=== PATIENT | female | born 1960 | race Caucasian/White ===

== ENCOUNTER 2016-12-26 06:13 | Day surgery (SDC) | payer OTHER ==
[2016-12-20 12:40] VITALS: BMI 21.1
[~2016-12-26 06:13] MED LIST: LEVOFLOXACIN 500 MG PREMIX BAG IVPB ONE
[2016-12-26] MEDS ORDERED: LEVOFLOXACIN 500 MG PREMIX BAG IVPB ONE (13:13)
[2016-12-26] MEDS ORDERED: PROMETHAZINE HCL 25 MG/1 ML VIAL IVPUSH PRN (13:44)
[2016-12-26] MEDS ORDERED: ONDANSETRON 4 MG/2 ML VIAL IVPUSH PRN (13:44)
[2016-12-26] MEDS ORDERED: oxyCODONE HCL 5 MG TABLET PO PRN (13:44)
[2016-12-26] MEDS ORDERED: LACTATED RINGERS SOLUTION 1,000 ML IV SCH (13:45)
--- NOTE | 2016-12-26 13:50 | OP ---
Operative Note - Note: Operative Date: 12/26/16 Pre-Operative Diagnosis: left renal stone Operation: left eswl Findings: 13 mm left mid pole renal stone Post-Operative Diagnosis: Same as Pre-op Surgeon: Kirit White Anesthesia: General Operative Report Dictated: Yes
[2016-12-26 13:59] VITALS: TEMP 98.1
[2016-12-26 15:55] VITALS: BP 119/77; PULSE 70
--- NOTE | 2016-12-26 20:53 | OP ---
DATE OF OPERATION: 12/26/2016 PREOPERATIVE DIAGNOSIS: Left renal stone. POSTOPERATIVE DIAGNOSIS: Left renal stone. PROCEDURE: Left extracorporeal shock wave lithotripsy. ATTENDING: Pedrito White M.D. ANESTHESIA: General. OPERATION: Patient was brought in the operating room, placed in a supine position on the operating room table. Ultrasonography and fluoroscopy were performed. A 13-mm left mid pole stone was identified. General anesthesia was then administered. Levaquin 500 mg was given intravenously for surgical prophylaxis. At this point, extracorporeal shock wave lithotripsy was performed with 3000 impulses at 20 joules of power was administered to the stone with excellent fragmentation noted under real time fluoroscopy and ultrasonography. There were no complications noted. DISPOSITION: Disposition of the patient to the recovery room. PEDRITO ACOSTA M.D. [id number]
== END 2016-12-26 16:31 | disposition home or self-care (01) ==
LOC: JASU-SURG 06:13
PROVIDERS: ATTEND Urology
PROC: 0TF4XZZ Fragmentation in Left Kidney Pelvis, External Approach (ICD-10-PCS; principal; 2016-12-26 14:15)
DX: N20.0 Calculus of kidney (principal)
CPT/HCPCS: 94760

== ENCOUNTER 2017-04-16 23:45 | Emergency (ER) | payer OTHER ==
[2017-04-17 00:17] VITALS: BP 132/96; PULSE 103; TEMP 97.7; BMI 21.4
--- NOTE | 2017-04-17 01:19 | PDOC ---
History of Present Illness - History of Present Illness Initial Comments: 04/17/17 02:14 The patient is a 56 year old female, with a significant past medical history of Sjogren syndrome, recurrent nephrolithiasis status post multiple lithotripsies ( last 3 months ago), fibromyalgia, chronic IBS, depression/anxiety, GERD, and COPD, who presents to the emergency department with right flank pain today. The patient states she had lithotripsy of a 10mm stone on the left 3 months ago. She reports knowing of a stone on the right. She reports her right flank pain increased significantly tonight. She denies any other symptoms. She denies chest pain, shortness of breath, headache and dizziness. She denies fever, chills, nausea, vomit, diarrhea and constipation. She denies dysuria, frequency, urgency and hematuria. Allergies: NKDA <Perri Dennison - Last Filed: 04/17/17 04:41> <Evelina Belcher - Last Filed: 04/17/17 06:30> - General Chief Complaint: Pain, Acute Stated Complaint: RIGHT SIDE PAIN Time Seen by Provider: 04/17/17 01:19 Past History <Perri Dennison - Last Filed: 04/17/17 04:41> - Past Medical History Anemia: No Asthma: No Cancer: No Cardiac Disorders: No CVA: No COPD: No CHF: No Dementia: No Diabetes: No GI Disorders: Yes (IBS) Disorders: Yes (KIDNEY STONES) HTN: No Hypercholesterolemia: No Kidney Stones: Yes Liver Disease: No (GERD) Psychiatric Problems: Yes (depression) Suicide Attempt (Hx): No Seizures: No Thyroid Disease: No Other medical history: fibromialgia, rheumatoid arthritis - Surgical History Abdominal Surgery: No Appendectomy: No Cardiac Surgery: No Cholecystectomy: No Lung Surgery: No Neurologic Surgery: No Orthopedic Surgery: Yes (SHOULDER SX-ROTATOR CUFF (LEFT)) - Reproductive History Cervical CA: No Dysfunctional Uterine Bleeding: No Ectopic : No Endometrial CA: No Polycystic Ovaries: No - Immunization History Immunization Up to Date: Yes (flu) - Psycho/Social/Smoking Cessation Hx Anxiety: No Suicidal Ideation: No Smoking Status: Yes Smoking History: Current every day smoker Years of Tobacco Use: 30 Have you smoked in the past 12 months: Yes Number of Cigarettes Smoked Daily: 10 Information on smoking cessation initiated: No 'Breaking Loose' booklet given: 03/17/16 Hx Alcohol Use: No Drug/Substance Use Hx: No Substance Use Type: Marijuana Hx Substance Use Treatment: No <Evelina Belcher - Last Filed: 04/17/17 06:30> - Past Medical History Allergies/Adverse Reactions: Allergies Allergy/AdvReac Type Severity Reaction Status Date / Time No Known Drug Allergies Allergy Verified 04/17/17 00:07 Home Medications: Ambulatory Orders Mirtazapine [Remeron -] 45 mg PO HS 06/12/15 Hydrochlorothiazide [Hctz -] 12.5 mg PO DAILY 08/31/15 Tiotropium [place] [Spiriva] 1 inh PO DAILY 08/31/15 Zolpidem Tartrate [Ambien] 10 mg PO HS PRN 08/31/15 Sennosides [Senokot] 8.6 mg PO HS 09/20/15 Alprazolam [Xanax] 2 mg PO HS PRN 12/20/16 Duloxetine HCl [Cymbalta] 30 mg PO BID 12/20/16 Gabapentin 800 mg PO DAILY 12/20/16 Hydrocodone/Acetaminophen [Lortab 10-325 mg Tablet] 1 each PO PRN PRN 12/20/16 L.acidoph,Paracasei, B.lactis [Probiotic] 1 each PO BID 12/20/16 Methylcellulose [Citrucel] 4 tab PO DAILY 12/20/16 Review of Systems - Review of Systems Able to Perform ROS?: Yes Comments:: 04/17/17 02:15 GENERAL/CONSTITUTIONAL: No fever or chills. No weakness. HEAD, EYES, EARS, NOSE AND THROAT: No change in vision. No ear pain or discharge. No sore throat. CARDIOVASCULAR: No chest pain or shortness of breath. RESPIRATORY: No cough, wheezing, or hemoptysis. GASTROINTESTINAL: No nausea, vomiting, diarrhea or constipation. GENITOURINARY: (+) right flank pain. No dysuria, frequency, or change in urination. MUSCULOSKELETAL: No joint or muscle swelling or pain. No neck or back pain. SKIN: No rash NEUROLOGIC: No headache, vertigo, loss of consciousness, or change in strength/ sensation. ENDOCRINE: No increased thirst. No abnormal weight change. HEMATOLOGIC/LYMPHATIC: No anemia, easy bleeding, or history of blood clots. ALLERGIC/IMMUNOLOGIC: No hives or skin allergy. <Vero Dennisonanda - Last Filed: 04/17/17 04:41> *Physical Exam - Vital Signs Last Vital Signs Temp Pulse Resp BP Pulse Ox 97.7 F 103 H 20 132/96 96 04/17/17 00:04 04/17/17 00:04 04/17/17 00:04 04/17/17 00:04 04/17/17 00:04 - Physical Exam Comments: 04/17/17 02:17 GENERAL: Awake, alert, and fully oriented, in no acute distress HEAD: No signs of trauma EYES: PERRLA, EOMI, sclera anicteric, conjunctiva clear ENT: Auricles normal inspection, hearing grossly normal, nares patent, oropharynx clear without exudates. Moist mucosa NECK: Normal ROM, supple, no lymphadenopathy, JVD, or masses LUNGS: Breath sounds equal, clear to auscultation bilaterally. No wheezes, and no crackles HEART: Regular rate and rhythm, normal S1 and S2, no murmurs, rubs or gallops ABDOMEN: Soft, nontender, normoactive bowel sounds. No guarding, no rebound. No masses EXTREMITIES: Normal range of motion, no edema. No clubbing or cyanosis. No cords, erythema, or tenderness NEUROLOGICAL: Cranial nerves II through XII grossly intact. Normal speech, normal gait SKIN: Warm, Dry, normal turgor, no rashes or lesions noted. <KalpanaPerri hendrix - Last Filed: 04/17/17 04:41> - Vital Signs Last Vital Signs Temp Pulse Resp BP Pulse Ox 97.7 F 103 H 20 132/96 96 04/17/17 00:04 04/17/17 00:04 04/17/17 00:04 04/17/17 00:04 04/17/17 00:04 <Evelina Belcher - Last Filed: 04/17/17 06:30> ED Treatment Course - LABORATORY CBC & Chemistry Diagram: 04/17/17 02:00 04/17/17 02:00 - RADIOLOGY Radiograph Interpretation: 04/17/17 04:41 EXAM: CT ABDOMEN AND PELVIS WITHOUT CONTRAST was read by Soledad Berry M.D. 03:37 EST IMPRESSION: Small stone left kidney, similar to 07/18/16. No ureterolithiasis or obstructive uropathy. No bladder calculi. Unremarkable pancreas and gallbladder. No bowel obstruction, colitis, diverticulitis, free fluid or free air. Normal appendix. Small right Bochdalek hernia containing fat. <Perri Dennison - Last Filed: 04/17/17 04:41> - LABORATORY CBC & Chemistry Diagram: 04/17/17 02:00 04/17/17 02:00 <Evelina Belcher - Last Filed: 04/17/17 06:30> Medical Decision Making - Medical Decision Making 04/17/17 02:43 Pt comes with R flank pain. She states that she has a long hx of kidney stones , and that they get broken up by her urologist Abner usually. Today she comes with right sided flank pain and right abd pain. Pt's UA is normal and her CBC is normal. She will be hydrated and given morphine and she will get a spiral CT scan, as the last CT scan on record was a year ago. 04/17/17 03:52 Patient Name: Phani Chirinos THIS IS A PRELIMINARY REPORT FROM [facility] TECHNICIAN IMAGES: [id number] EXAM DATE AND TIME: 2017-04-17 02:44:22.0 EXAM: CT ABDOMEN AND PELVIS WITHOUT CONTRAST Small stone left kidney, similar to 07/18/16. No ureterolithiasis or obstructive uropathy. No bladder calculi. Unremarkable pancreas and gallbladder. No bowel obstruction, colitis, diverticulitis, free fluid or free air. Normal appendix. Small right Bochdalek hernia containing fat. THIS DOCUMENT HAS BEEN ELECTRONICALLY SIGNED 04/17/17 06:29 Pt was upset when she heard that her labs and CT are essentially normal. She is arguing with me because she wants to stay in the ER and get more narcotics. I told her to go home and follow outpatient. <Evelina Belcher - Last Filed: 04/17/17 06:30> *DC/Admit/Observation/Transfer - Attestations Scribe Attestion: 04/17/17 02:18 Documentation prepared by Perri Dennison, acting as medical office worker for Evelina Belcher MD <Perri Dennison - Last Filed: 04/17/17 04:41> - Discharge Dispostion Admit: No <Evelina Belcher - Last Filed: 04/17/17 06:30> Diagnosis at time of Disposition: Flank pain - Discharge Dispostion Disposition: HOME Condition at time of disposition: Stable - Referrals Referrals: Abdon Rogers MD [Primary Care Provider] - - Patient Instructions Printed Discharge Instructions: Kidney Stones -- Adult
[2017-04-17] MEDS ORDERED: morphine CARPU-JECT 2 MG/1 ML DISP.SYRIN IVPUSH ONE (01:51)
[2017-04-17] MEDS ORDERED: SODIUM CHLORIDE 0.9% 500 ML INFUS.BAG IV ONE (01:51)
[2017-04-17 02:11] LABS: BASOPHIL 1.1 % (0-2.0); MCHC 32.8 g/dl (32.0-36.0); MEAN CELL VOLUME 94.6 fl (80-96); MEAN PLT VOLUME 7.9 fl (7.5-11.1); NEUTROPHILS 59.6 % (42.8-82.8); PLATELET COUNT 225 K/MM3 (134-434); RDW 14.5 % (11.6-15.6); WHITE BLOOD COUNT 9.4 K/mm3 (4.0-10.0)
[2017-04-17] MEDS ORDERED: morphine CARPU-JECT 2 MG/1 ML DISP.SYRIN ONE (02:21)
[2017-04-17 02:46] LABS: ALBUMIN 3.5 g/dl (3.4-5.0); ALK PHOS 100 U/L (45-117); ANION GAP 6 (8-16); BILIRUBIN,TOTAL 0.2 mg/dL (0.2-1.0); CALCIUM 8.7 mg/dL (8.5-10.1); CO2 26 mmol/L (21-32); CREATININE 0.9 mg/dL (0.55-1.02); GLUCOSE,RANDOM 107 mg/dL (74-106); SGOT/AST 30 U/L (15-37); SGPT/ALT 28 U/L (12-78); TOT PROT 6.8 g/dl (6.4-8.2)
== END 2017-04-17 04:06 | disposition home or self-care (01) ==
LOC: JER 23:45
PROC: 3E033NZ Introduction of Analgesics, Hypnotics, Sedatives into Peripheral Vein, Percutaneous Approach (ICD-10-PCS; principal; 2017-04-16)
DX: R10.31 Right lower quadrant pain (principal); Z87.442 Personal history of urinary calculi; K21.9 Gastro-esophageal reflux disease without esophagitis; J44.9 Chronic obstructive pulmonary disease, unspecified; F41.8 Other specified anxiety disorders
CPT/HCPCS: 36415; 74176; 80053; 85025; 96374; 99282-25

== ENCOUNTER 2019-06-25 08:18 | Day surgery (SDC) | payer OTHER ==
[2019-06-24 14:08] VITALS: BMI 20.5
[2019-06-25] MEDS ORDERED: ceFAZolin SODIUM 1 GM VIAL ONE (10:23)
[2019-06-25] MEDS ORDERED: LIDOCAINE HCL/PF 2% SDV 5ML VIAL ONE (10:23)
[2019-06-25] MEDS ORDERED: PROPOFOL 20 ML ONE (10:24)
[2019-06-25] MEDS ORDERED: MIDAZOLAM HCL 2 MG/2 ML SINGLE DOSE VIAL ONE (10:24)
[2019-06-25] MEDS ORDERED: KETOROLAC TROMETHAMINE 30 MG/1 ML VIAL ONE (10:41)
--- NOTE | 2019-06-25 11:00 | OP ---
Operative Note - Note: Operative Date: 06/25/19 Pre-Operative Diagnosis: Left renal calculus Operation: Left ESWL Findings: Left 5 mm stone Post-Operative Diagnosis: Same as Pre-op Surgeon: Tyler Gonsales MD. Anesthesia: General
[2019-06-25] MEDS ORDERED: ONDANSETRON 4 MG/2 ML VIAL IVPUSH PRN (11:08)
[2019-06-25] MEDS ORDERED: ACETAMINOPHEN 1000 MG/100 ML VIAL (NON FORMULARY) IVPB PRN (11:08)
[2019-06-25] MEDS ORDERED: oxyCODONE HCL 5 MG TABLET PO PRN (11:08)
[2019-06-25] MEDS ORDERED: LACTATED RINGERS SOLUTION 1,000 ML IV SCH (11:15)
[2019-06-25] MEDS ORDERED: oxyCODONE HCL 5 MG TABLET ONE (12:27)
--- NOTE | 2019-06-25 12:59 | OP ---
DATE OF OPERATION: 06/25/2019 PREOPERATIVE DIAGNOSIS: Left renal calculus. POSTOPERATIVE DIAGNOSIS: Left renal calculus. PROCEDURE: Left extracorporeal shock-wave lithotripsy. HISTORY: This is a 58-year-old female with a history of left renal colic and left renal calculi. Preoperative imaging revealed a 5-mm middle pole stone. I have explained to the patient that likely this is not the cause of her pain; however, she proceeded to require pain medicine, also she wishes to prophylactically treat the stone prior to it potentially passing into the ureter and causing obstruction. Risks and benefits of treatment, alternative treatments discussed in detail. All questions were answered. BRIEF OPERATIVE NOTE: The patient was brought to the operative suite, placed in the supine position, once general anesthesia was administered, after localizing the stone in 3-dimensional fluoroscopy as well as ultrasonography, intravenous antibiotics were not given. At this time, approximately 2500 shocks were delivered in electromagnetic fashion. Patient tolerated the procedure well, was brought to recovery room in stable and satisfactory condition. RADHA ZELAYA M.D. [id number]
[2019-06-25 16:19] VITALS: TEMP 98
[2019-06-25 16:37] VITALS: BP 102/70; PULSE 62
== END 2019-06-25 14:45 | disposition home or self-care (01) ==
LOC: JASU-SURG 08:18
PROVIDERS: ATTEND Urology
PROC: 0TF4XZZ Fragmentation in Left Kidney Pelvis, External Approach (ICD-10-PCS; principal; 2019-06-25 09:30)
DX: N20.0 Calculus of kidney (principal)
CPT/HCPCS: 94760; J0131

== ENCOUNTER 2019-11-26 09:00 | Day surgery (SDC) | payer OTHER ==
[2019-11-25 16:54] VITALS: BMI 21.2
[~2019-11-26 09:00] MED LIST changes: -LEVOFLOXACIN 500 MG PREMIX BAG IVPB ONE; +ceFAZolin SODIUM 1 GM VIAL IVPB ONE
--- NOTE | 2019-11-26 11:18 | OP ---
Operative Note - Note: Operative Date: 11/26/19 Pre-Operative Diagnosis: Left renal calc Operation: Left ESWL Findings: 4 mm left renal calc Post-Operative Diagnosis: Same as Pre-op Anesthesia: General Operative Report Dictated: Yes
[2019-11-26] MEDS ORDERED: ELECTROLYTE-148 SOLN 1,000 ML IV SCH (11:30)
[2019-11-26 14:25] VITALS: BP 130/60; PULSE 67; TEMP 97.9
--- NOTE | 2019-11-26 15:47 | OP ---
DATE OF OPERATION: 11/26/2019 PREOPERATIVE DIAGNOSIS: Left renal calculus. POSTOPERATIVE DIAGNOSIS: Left renal calculus. PROCEDURE: Left extracorporeal shock-wave lithotripsy. HISTORY: This is a very pleasant 58-year-old female with history of urinary calculi in the past status post prior lithotripsies and episodes of renal colic. Patient was recommended to observe the stone for several months; however, it did not pass. Due to the patient's somewhat smaller body habitus as well as the presence of a 4-mm stone, it is recommended to proceed with ESWL. Risks and benefits of treatment, alternative treatments including observation were discussed with the patient in detail. BRIEF OPERATIVE NOTE: Patient brought to the operative suite. Placed in supine position. Once the stone was visualized using ultrasonography and fluoroscopy, a time-out was performed. Sedation was administered. Approximately 2500 shocks were delivered in electromagnetic fashion. Patient tolerated procedure well. Stone appeared to fragment radiographically. Patient was brought to recovery room in stable, satisfactory condition. RADHA ZELAYA M.D. [id number]
== END 2019-11-26 13:25 | disposition home or self-care (01) ==
LOC: JASU-SURG 09:00
PROVIDERS: ATTEND Urology
PROC: 0TF4XZZ Fragmentation in Left Kidney Pelvis, External Approach (ICD-10-PCS; principal; 2019-11-26 09:15)
DX: N20.0 Calculus of kidney (principal)

== ENCOUNTER 2021-12-07 04:25 | Day surgery (SDC) | payer OTHER ==
[2021-09-10 13:20] VITALS: BMI 20.6
[2021-12-07] MEDS ORDERED: MIDAZOLAM HCL 2 MG/2 ML SINGLE DOSE VIAL ONE (10:00)
[2021-12-07] MEDS ORDERED: ceFAZolin SODIUM 1 GM VIAL IVPB ONE (10:04)
[2021-12-07] MEDS ORDERED: ELECTROLYTE-148 SOLN 1,000 ML IV SCH (10:15)
[2021-12-07] MEDS ORDERED: DEXAMETHASONE SOD PHOSPHATE 4 MG/1 ML VIAL ONE (10:29)
[2021-12-07 12:42] VITALS: BP 107/72; PULSE 72; TEMP 97.5
== END 2021-12-07 12:51 | disposition home or self-care (01) ==
LOC: JASU-SURG 04:25
PROVIDERS: ATTEND Urology
PROC: 0TF3XZZ Fragmentation in Right Kidney Pelvis, External Approach (ICD-10-PCS; principal; 2021-12-07 10:00)
DX: N20.0 Calculus of kidney (principal)

== ENCOUNTER 2022-02-01 04:17 | Day surgery (SDC) | payer OTHER ==
[2022-01-28 12:38] VITALS: BMI 20.2
[2022-02-01] MEDS ORDERED: ACETAMINOPHEN 325 MG TABLET (FP) PO PRN (07:37)
[2022-02-01] MEDS ORDERED: PROMETHAZINE HCL 25 MG/1 ML VIAL IVPUSH PRN (07:37)
[2022-02-01] MEDS ORDERED: oxyCODONE HCL 5 MG TABLET PO PRN (07:37)
[2022-02-01] MEDS ORDERED: ONDANSETRON 4 MG/2 ML VIAL IVPUSH PRN (07:37)
[2022-02-01] MEDS ORDERED: LACTATED RINGERS SOLUTION 1,000 ML IV SCH (07:45)
[2022-02-01] MEDS ORDERED: PROPOFOL 20 ML ONE (11:11)
[2022-02-01] MEDS ORDERED: MIDAZOLAM HCL 2 MG/2 ML SINGLE DOSE VIAL ONE (11:11)
[2022-02-01] MEDS ORDERED: SODIUM CHLORIDE 0.9% P/F 10 ML VIAL IJ ONE (11:12)
[2022-02-01] MEDS ORDERED: KETOROLAC TROMETHAMINE 30 MG/1 ML VIAL ONE (11:12)
[2022-02-01] MEDS ORDERED: ceFAZolin SODIUM 1 GM VIAL ONE (11:12)
[2022-02-01] MEDS ORDERED: LIDOCAINE HCL/PF 2% SDV 5ML VIAL ONE (11:12)
[2022-02-01] MEDS ORDERED: ceFAZolin SODIUM 1 GM VIAL IVPB ONE ×2 (11:23→11:25)
[2022-02-01] MEDS ORDERED: ELECTROLYTE-148 SOLN 1,000 ML IV SCH (12:15)
[2022-02-01 13:18] VITALS: BP 145/94; PULSE 70; TEMP 97.2
== END 2022-02-01 13:22 | disposition home or self-care (01) ==
LOC: JASU-SURG 04:17
PROVIDERS: ATTEND Urology
PROC: 0TF4XZZ Fragmentation in Left Kidney Pelvis, External Approach (ICD-10-PCS; principal; 2022-02-01 10:30)
DX: N20.0 Calculus of kidney (principal)

== ENCOUNTER 2022-08-02 04:19 | Day surgery (SDC) | payer OTHER ==
[2022-07-29 15:48] VITALS: BMI 20.2
[2022-08-02] MEDS ORDERED: PROPOFOL 20 ML ONE (07:20)
[2022-08-02] MEDS ORDERED: KETAMINE HCL 200 MG/20 ML VIAL ONE (07:47)
[2022-08-02] MEDS ORDERED: MIDAZOLAM HCL 2 MG/2 ML SINGLE DOSE VIAL ONE (09:52)
[2022-08-02] MEDS ORDERED: ceFAZolin SODIUM 1 GM VIAL IVPB ONE (09:59)
[2022-08-02] MEDS ORDERED: ELECTROLYTE-148 SOLN 1,000 ML IV SCH (10:15)
[2022-08-02 11:23] VITALS: BP 150/91; PULSE 70; RESP 16; TEMP 96.9
== END 2022-08-02 11:15 | disposition home or self-care (01) ==
LOC: JASU-SURG 04:19
PROVIDERS: ATTEND Urology
PROC: 0TF6XZZ Fragmentation in Right Ureter, External Approach (ICD-10-PCS; principal; 2022-08-02 08:45)
DX: N20.1 Calculus of ureter (principal)

== ENCOUNTER 2023-05-09 05:47 | Day surgery (SDC) | payer OTHER ==
[2023-05-05 16:06] VITALS: BMI 19.1
[2023-05-09] MEDS ORDERED: PROMETHAZINE HCL 25 MG/1 ML VIAL IVPB PRN (09:06)
[2023-05-09] MEDS ORDERED: oxyCODONE HCL 5 MG TABLET PO PRN (09:06)
[2023-05-09] MEDS ORDERED: ONDANSETRON 4 MG/2 ML VIAL IVPUSH PRN (09:06)
[2023-05-09] MEDS ORDERED: ACETAMINOPHEN 500 MG TABLET (FP) PO PRN (09:06)
[2023-05-09] MEDS ORDERED: LACTATED RINGERS SOLUTION 1,000 ML IV SCH (09:15)
[2023-05-09] MEDS ORDERED: PROPOFOL 20 ML ONE (11:03)
[2023-05-09] MEDS ORDERED: MIDAZOLAM HCL 2 MG/2 ML SINGLE DOSE VIAL ONE (11:03)
[2023-05-09] MEDS ORDERED: ceFAZolin SODIUM 1 GM VIAL ONE (11:04)
[2023-05-09] MEDS ORDERED: GLYCOPYRROLATE 0.2 MG/1 ML VIAL ONE ×2 (11:04)
[2023-05-09] MEDS ORDERED: SODIUM CHLORIDE 0.9% P/F 10 ML VIAL IJ ONE (11:04)
[2023-05-09] MEDS ORDERED: LIDOCAINE HCL/PF 2% SDV 5ML VIAL ONE (11:04)
[2023-05-09] MEDS ORDERED: ONDANSETRON 4 MG/2 ML VIAL ONE (11:09)
[2023-05-09] MEDS ORDERED: KETOROLAC TROMETHAMINE 30 MG/1 ML VIAL ONE (11:09)
[2023-05-09] MEDS ORDERED: DEXAMETHASONE SOD PHOSPHATE 4 MG/1 ML VIAL ONE (11:09)
[2023-05-09] MEDS ORDERED: ceFAZolin SODIUM 1 GM VIAL IVPB ONE (11:10)
[2023-05-09] MEDS ORDERED: ACETAMINOPHEN 500 MG TABLET (FP) ONE (11:58)
[2023-05-09] MEDS ORDERED: ACETAMINOPHEN 500 MG TABLET (FP) PO ONE (12:00)
[2023-05-09 12:19] VITALS: RESP 16; TEMP 97.7
[2023-05-09 13:16] VITALS: BP 155/103; PULSE 84
== END 2023-05-09 13:20 | disposition home or self-care (01) ==
LOC: JASU-SURG 05:47
PROVIDERS: ATTEND Urology
PROC: 0TF4XZZ Fragmentation in Left Kidney Pelvis, External Approach (ICD-10-PCS; principal; 2023-05-09 10:30)
DX: N20.0 Calculus of kidney (principal)

== ENCOUNTER 2023-06-20 03:46 | Day surgery (SDC) | payer OTHER ==
[2023-06-16 14:05] VITALS: BMI 19.1
[2023-06-20] MEDS ORDERED: ELECTROLYTE-148 SOLN 1,000 ML IV SCH (09:45)
[2023-06-20] MEDS ORDERED: ceFAZolin SODIUM 1 GM VIAL IVPB ONE (10:08)
[2023-06-20] MEDS ORDERED: ceFAZolin SODIUM 1 GM VIAL ONE (10:12)
[2023-06-20] MEDS ORDERED: MIDAZOLAM HCL 2 MG/2 ML SINGLE DOSE VIAL ONE (10:12)
[2023-06-20] MEDS ORDERED: ONDANSETRON 4 MG/2 ML VIAL ONE (10:16)
[2023-06-20] MEDS ORDERED: PROPOFOL 20 ML ONE (10:23)
[2023-06-20 11:14] VITALS: RESP 20
[2023-06-20 13:52] VITALS: BP 138/84; PULSE 78; TEMP 98
== END 2023-06-20 12:30 | disposition home or self-care (01) ==
LOC: JASU-SURG 03:46
PROVIDERS: ATTEND Urology
PROC: 0TC38ZZ Extirpation of Matter from Right Kidney Pelvis, Via Natural or Artificial Opening Endoscopic (ICD-10-PCS; principal; 2023-06-20 09:45)
DX: N20.0 Calculus of kidney (principal)